=== PATIENT | female | born 1975 | race Caucasian/White ===

== ENCOUNTER 2016-05-28 16:41 | Emergency (ER) | payer OTHER ==
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
--- NOTE | 2016-05-28 17:23 | ED ORDER SUMMARY ---
..... Patient: HOWARD PAULINO OrderSheet [facility] VisitID: [id number] [address] [place] [address] 40y, F Registration Date/Time: 05/28/2016 ORDER SHEET Weight: 90.7 kg (stated) Allergies: No Known Drug Allergy GENERAL ORDERS: MEDICATION ORDERS: Silver Sulfadiazine Cream Topical (Cream 1 %) 1 application (NOW) (17:20 05/28/2016 Jael LONGORIA) (17:45 Cisco Cuellar) IV FLUIDS: ORDER SHEET NOTES: [Electronically signed by Chris Blandon R.N. (18:14 05/28/2016)] [Electronically signed by Flor Sumner PA-C (00:22 05/29/2016)] [Electronically locked/signed by Chris Blandon R.N. (18:14 05/28/2016)]
--- NOTE | 2016-05-28 17:23 | ED ORDER SUMMARY ---
..... Patient: HOWARD PAULINO OrderSheet [facility] VisitID: [id number] [address] [place] [address] 40y, F Registration Date/Time: 05/28/2016 ORDER SHEET Weight: 90.7 kg (stated) Allergies: No Known Drug Allergy GENERAL ORDERS: MEDICATION ORDERS: Silver Sulfadiazine Cream Topical (Cream 1 %) 1 application (NOW) (17:20 05/28/2016 Jael LONGORIA) (17:45 Cisco Cuellar) IV FLUIDS: ORDER SHEET NOTES: [Electronically signed by Chris Blandon R.N. (18:14 05/28/2016)] [Electronically signed by Flor Sumner PA-C (00:22 05/29/2016)] [Electronically locked/signed by Chris Blandon R.N. (18:14 05/28/2016)]
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
--- NOTE | 2016-05-29 00:22 | ED MED RECONCILIATION SUMMARY ---
Patient: HOWARD PAULINO Medication Reconciliation Report [facility] VisitID: [id number] [address] [place] [address] 40y, F Registration Date/Time: 05/28/2016 Weight: 90.7 kg Height/Length: 65 in. BMI: 33.3 ALLERGIES: No Known Drug Allergy The patient's Home Medications are listed below: CONTINUE TAKING THE FOLLOWING MEDICATIONS: Probiotic, daily The source(s) of the original Home Medication information: patient The following Medications were given to the patient in the Emergency Department: Silver Sulfadiazine Cream [TOPICAL] Topical 1 application, administered: 05/28/2016 5:30:00 PM The following Medications were prescribed to the patient: Oxycodone/APAP 5 mg/325 mg: take 1 tablet orally every 6 hours as needed for pain. Dispense ten (10). No refill. -- Flor Sumner PA-C Silvadene cream 1% : apply to affected area twice daily for 1 week until better. Dispense fifty (50) grams. One refill. Substitution is permissible -- Flor Sumner PA-C
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
--- NOTE | 2016-05-29 00:22 | ED MAR SUMMARY ---
..... Medication Administration Record [facility] [address] [place] [address] Patient: HOWARD PAULINO Visit ID: [id number] 40y, F Weight: 90.7 kg Height/Length: 65 in BMI: 33.3 ALLERGIES: No Known Drug Allergy Given 17:30 05/28/2016 Chris Blandon R.NYousuf Medication Administered: SILVER SULFADIAZINE CREAM [TOPICAL], Dose: 1 application Cream Topical. Medication Ordered: Silver Sulfadiazine Cream Topical (Cream 1 %) 1 application (NOW).
--- NOTE | 2016-05-29 00:22 | ED MAR SUMMARY ---
..... Medication Administration Record [facility] [address] [place] [address] Patient: HOWARD PAULINO Visit ID: [id number] 40y, F Weight: 90.7 kg Height/Length: 65 in BMI: 33.3 ALLERGIES: No Known Drug Allergy Given 17:30 05/28/2016 Chris Blandon R.NYousuf Medication Administered: SILVER SULFADIAZINE CREAM [TOPICAL], Dose: 1 application Cream Topical. Medication Ordered: Silver Sulfadiazine Cream Topical (Cream 1 %) 1 application (NOW).
--- NOTE | 2016-05-29 00:22 | ED MED RECONCILIATION SUMMARY ---
Patient: HOWARD PAULINO Medication Reconciliation Report [facility] VisitID: [id number] [address] [place] [address] 40y, F Registration Date/Time: 05/28/2016 Weight: 90.7 kg Height/Length: 65 in. BMI: 33.3 ALLERGIES: No Known Drug Allergy The patient's Home Medications are listed below: CONTINUE TAKING THE FOLLOWING MEDICATIONS: Probiotic, daily The source(s) of the original Home Medication information: patient The following Medications were given to the patient in the Emergency Department: Silver Sulfadiazine Cream [TOPICAL] Topical 1 application, administered: 05/28/2016 5:30:00 PM The following Medications were prescribed to the patient: Oxycodone/APAP 5 mg/325 mg: take 1 tablet orally every 6 hours as needed for pain. Dispense ten (10). No refill. -- Flor Sumner PA-C Silvadene cream 1% : apply to affected area twice daily for 1 week until better. Dispense fifty (50) grams. One refill. Substitution is permissible -- Flor Sumner PA-C
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
== END 2016-05-28 17:40 | disposition home or self-care (01) ==
LOC: ED SRH 16:41
DX: T24.211A Burn of second degree of right thigh, initial encounter (principal); T31.0 Burns involving less than 10% of body surface; X16.XXXA Contact with hot heating appliances, radiators and pipes, initial encounter; Y93.9 Activity, unspecified; Y92.009 Unspecified place in unspecified non-institutional (private) residence as the place of occurrence of the external cause; Y99.9 Unspecified external cause status

== ENCOUNTER 2016-07-27 11:12 | Emergency (ER) | payer OTHER ==
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
--- NOTE | 2016-07-27 12:32 | ED ORDER SUMMARY ---
..... Patient: HOWARD PAULINO OrderSheet [facility] VisitID: [id number] [address] [place] [address] 41y, F Registration Date/Time: 07/27/2016 ORDER SHEET Weight: 104.3 kg (stated) Allergies: No Known Drug Allergy GENERAL ORDERS: Hand 3 or 4V Right (bruising to the proximal 3 - 5 digits) Urgent (11:07/27/2016 Rosalia Hilton) (Ack 11:50 MYESHAoerner) (12:39 Jesusita R.N.) Splint (UE) (Right) (Velcro - wrist) (12:07/27/2016 Rosalia Hilton) (12:54 Jesusita R.N.) MEDICATION ORDERS: Motrin PO 600 mg (NOW) (11:30 07/27/2016 Rosalia Hilton) (Ack 11:33 Jesusita R.N.) (11:38 Jesusita R.N.) Tylenol PO 650 mg (NOW) (11:07/27/2016 Rosalia Hilton) (Ack 11:33 Jesusita R.N.) (11:48 Jesusita R.N.) IV FLUIDS: ORDER SHEET NOTES: [Electronically signed by Yousif Mi R.N. (18:53 07/27/2016)] [Electronically signed by Laz Nathan Dr. (05:06 07/30/2016)] [Electronically locked/signed by Yousif Mi R.N. (18:53 07/27/2016)]
--- NOTE | 2016-07-27 12:32 | ED CLINICAL REPORT ---
Clinical Report - Physicians/Mid Levels [facility] [address] [place] [address] 07/27/2016 11:12 Patient: HOWARD PAULINO Time Seen: 1121. Arrived- By private vehicle. Historian- patient. HISTORY OF PRESENT ILLNESS Chief Complaint: Injury to the right hand. The injury happened today. The patient sustained a crush injury- dropped heavy object on hand. Occurred at home. Patient is experiencing moderate pain. Patient denies injury to the head or neck. No other injury. REVIEW OF SYSTEMS The patient has had swelling. No numbness, weakness, foreign body or skin laceration. All systems otherwise negative, except as recorded above. PAST HISTORY See nurses notes. Tetanus immunization status is up-to-date. SOCIAL HISTORY Never smoker. No alcohol use or drug use. No recent travel. Is a local resident. ADDITIONAL NOTES The nursing notes have been reviewed. PHYSICAL EXAM Vital Signs: 07/27/2016 11:18 BP: 142/73. HR: 97. RR: 18. O2 saturation: 98%. Temp: 98.4 F. Oxygen saturation normal. Appearance: Alert. Oriented X3. No acute distress. CVS: Normal heart rate and rhythm. Heart sounds normal. Pulses normal. Respiratory: No respiratory distress. Breath sounds normal. Chest nontender. Abdomen: No visible injury. Soft and nontender. Bowel sounds normal. Skin: Skin warm and dry. Skin intact. Extremities: (mild amount of ecchymosis to the 1 digits 3 through 5 at the proximal phalanges. No other acute abnormality is noted. No bony abnormalities. No gross deformities. Skin is intact. No snuffbox tenderness. Capillary refill and sensation is intact in all fingers. Radial pulses are 2+ and symmetrical to the contralateral side. Compartments are soft.). No wrist injury. No hand injury. Hand and wrist exam otherwise negative. Neuro, Vascular and Tendons: Vascular status intact. Sensation intact. Motor intact. Tendon function intact. LABS, X-RAYS, AND EKG Rt Hand X-ray: (PROCEDURE: XR HAND 3 OR 4 VIEWS - RIGHT INDICATION: TRAUMA/INJURY TECHNIQUE: Four views. COMPARISON: None. FINDINGS: Osseous structures and joint spaces are normal. IMPRESSION: 1. Normal right hand.). The X-rays were independently viewed by me and interpreted by the radiologist. The X-rays were discussed with the radiologist (via pacs). PROGRESS AND PROCEDURES Course of Care: The patient is a pleasant 41-year-old female presenting for eval used to right-sided hand pain. On examination, there is a mild amount of ecchymosis noted on the patient's proximal digits on the digits 3 through 5. No other acute abnormalities noted. Patient is neurovascularly intact. Pain medication has been offered. Regards of the right hand have been ordered for further evaluation of the patient's hand. At this time differential diagnosis includes contusion versus fracture/dislocation. Patient is agreeable to the treatment plan. Patient's workup was noted for the findings above. No acute osseous abnormalities noted. Patient's repeat examination continues to be benign. Discussed with the patient workup. The emergency department including diagnostic uncertainty diagnosis, home care, follow-up, and return precautions. All questions have been answered. The patient expressed understanding of these instructions and was agreeable to them. Disposition: Discharged. Condition: good. CLINICAL IMPRESSION 07/27/2016 11:18 BP: 142/73. HR: 97. RR: 18. O2 saturation: 98%. Temp: 98.4 F. Hypertensive. Oxygen saturation normal. Single contusion. Essential hypertension. INSTRUCTIONS Warnings: GENERAL WARNINGS: Return or contact your physician immediately if your condition worsens or changes unexpectedly, if not improving as expected, or if other problems arise. Specifically return if pain, vomiting, bleeding, breathing difficulty or fever. Your Current Medications: CONTINUE TAKING THE FOLLOWING MEDICATIONS: None*. Prescription Medications: [place] 5 mg / 325 mg tablets: take 1 orally every 6 hours as needed for pain. Dispense twelve (12). No refill. Substitution is permissible. Follow-up: Return to the emergency department as needed. Follow up with your doctor in one week. Reason for referral: recheck today's concerns. Summary of care provided to patient via paper. Screening today revealed the patient's blood pressure to be in the hypertensive range. The patient should follow up with a primary care provider for blood pressure management. Understanding of the discharge instructions verbalized by patient. (Electronically signed by Laz Nathan Dr. 07/30/2016 5:06)
--- NOTE | 2016-07-27 12:32 | ED ORDER SUMMARY ---
..... Patient: HOWARD PAULINO OrderSheet [facility] VisitID: [id number] [address] [place] [address] 41y, F Registration Date/Time: 07/27/2016 ORDER SHEET Weight: 104.3 kg (stated) Allergies: No Known Drug Allergy GENERAL ORDERS: Hand 3 or 4V Right (bruising to the proximal 3 - 5 digits) Urgent (11:07/27/2016 Rosalia Hilton) (Ack 11:50 MYESHAoerner) (12:39 Jesusita R.N.) Splint (UE) (Right) (Velcro - wrist) (12:07/27/2016 oRsalia Hilton) (12:54 Jesusita R.N.) MEDICATION ORDERS: Motrin PO 600 mg (NOW) (11:30 07/27/2016 Rosalia Hilton) (Ack 11:33 Jesusita R.N.) (11:38 Jesusita R.N.) Tylenol PO 650 mg (NOW) (11:07/27/2016 Rosalia Hilton) (Ack 11:33 Jesusita R.N.) (11:48 Jesusita R.N.) IV FLUIDS: ORDER SHEET NOTES: [Electronically signed by Yousif Mi R.N. (18:53 07/27/2016)] [Electronically signed by Laz Nathan Dr. (05:06 07/30/2016)] [Electronically locked/signed by Yousif Mi R.N. (18:53 07/27/2016)]
--- NOTE | 2016-07-27 13:14 | DIAGNOSTIC IMAGING REPORT ---
PROCEDURE: XR HAND 3 OR 4 VIEWS - RIGHT INDICATION: TRAUMA/INJURY TECHNIQUE: Four views. COMPARISON: None. FINDINGS: Osseous structures and joint spaces are normal. IMPRESSION: 1. Normal right hand.
--- NOTE | 2016-07-30 05:07 | ED MAR SUMMARY ---
..... Medication Administration Record [facility] [address] [place] [address] Patient: HOWARD PAULINO Visit ID: [id number] 41y, F Weight: 104.3 kg Height/Length: 65 in BMI: 38.3 ALLERGIES: No Known Drug Allergy Given 11:38 07/27/2016 Jane Rojas RKym Medication Administered: MOTRIN [PO], Dose: 600 mg Tablets PO. Medication Ordered: Motrin PO 600 mg (NOW). Given 11:43 07/27/2016 Jane Rojas, RYousufN. Medication Administered: TYLENOL [PO] (ACETAMINOPHEN), Dose: 650 mg Tablets PO. Medication Ordered: Tylenol PO 650 mg (NOW).
--- NOTE | 2016-07-30 05:07 | ED MED RECONCILIATION SUMMARY ---
Patient: HOWARD PAULINO Medication Reconciliation Report [facility] VisitID: [id number] [address] [place] [address] 41y, F Registration Date/Time: 07/27/2016 Weight: 104.3 kg Height/Length: 65 in. BMI: 38.3 ALLERGIES: No Known Drug Allergy The patient's Home Medications are listed below: NONE. The source(s) of the original Home Medication information: Not obtained. The following Medications were given to the patient in the Emergency Department: Motrin [PO] PO 600 mg, administered: 07/27/2016 11:38:00 AM Tylenol [PO] PO 650 mg, administered: 07/27/2016 11:43:00 AM The following Medications were prescribed to the patient: [place] 5 mg / 325 mg tablets: take 1 orally every 6 hours as needed for pain. Dispense twelve (12). No refill. Substitution is permissible. -- Laz Nathan Dr.
--- NOTE | 2016-07-30 05:07 | ED DISCHARGE INSTRUCTIONS ---
Patient: HOWARD PAULINO General Instructions [facility] VisitID: [id number] [address] [place] [address] 41y, F Registration Date/Time: 07/27/2016 07/27/2016 11:18 BP: 142/73. HR: 97. RR: 18. O2 saturation: 98%. Temp: 98.4 F. Hypertensive. Oxygen saturation normal. Single contusion. Essential hypertension. INSTRUCTIONS Warnings: GENERAL WARNINGS: Return or contact your physician immediately if your condition worsens or changes unexpectedly, if not improving as expected, or if other problems arise. Specifically return if pain, vomiting, bleeding, breathing difficulty or fever. Your Current Medications: CONTINUE TAKING THE FOLLOWING MEDICATIONS: None*. Prescription Medications: [place] 5 mg / 325 mg tablets: take 1 orally every 6 hours as needed for pain. Dispense twelve (12). No refill. Substitution is permissible. Follow-up: Return to the emergency department as needed. Follow up with your doctor in one week. Reason for referral: recheck today's concerns. Summary of care provided to patient via paper. Screening today revealed the patient's blood pressure to be in the hypertensive range. The patient should follow up with a primary care provider for blood pressure management. Understanding of the discharge instructions verbalized by patient. ADDITIONAL INFORMATION Contusion: Hand You have a CONTUSION of your hand. This causes local pain, swelling and sometimes bruising. There are no broken bones. This injury takes from a few days to a few weeks to heal. Home Care: 1) Keep your arm elevated to reduce pain and swelling. This is very important during the first 48 hours. 2) Apply an ice pack (ice cubes in a plastic bag, wrapped in a towel) over the injured area for 20 minutes every 1-2 hours the first day. You should continue with ice packs 3-4 times a day for the next two days. Continue the use of ice packs for relief of pain and swelling as needed. 3) You may use acetaminophen (Tylenol) or ibuprofen (Motrin, Advil) to control pain, unless another pain medicine was prescribed. [ NOTE : If you have chronic liver or kidney disease or ever had a stomach ulcer or GI bleeding, talk with your doctor before using these medicines.] Follow Up with your doctor or this facility if you are not starting to improve within the next THREE days. [NOTE: If X-rays were taken, they will be reviewed by a radiologist. You will be notified of any new findings that may affect your care.] Get Prompt Medical Attention if any of the following occur: -- Pain or swelling increases -- Redness, warmth or drainage -- Hand or fingers becomes cold, blue, numb or tingly High Blood Pressure -- To Be Confirmed [No Tx] Your blood pressure was higher today than normal. Sometimes anxiety or pain can cause a temporary rise in blood pressure that later returns to normal. If your blood pressure is high on one measurement, this does not mean that you have hypertension (a chronic illness). However, you must have your blood pressure measured again within the next few days to find out if its still high. A normal blood pressure is 120/80 or less. The first (top) number is the "systolic" pressure. The second (bottom) number is the "diastolic" pressure. Hypertension exists when either the top number is 140 or higher, OR the bottom number is 90 or higher on repeated measurements. Blood pressure in the range of 120-140 (systolic) or 80-89 (diastolic) is considered "pre-hypertension". This means your are at risk for getting hypertension. You should have regular blood pressure checks to be sure your blood pressure is not rising. Home Care: Measure your blood pressure on 3 different days and write down the results. This can be done at your doctor's office or this facility. Some pharmacies and grocery stores offer automated blood pressure machines for your use. Follow Up: If your blood pressure is "high" (over 120/80) on 2 out of 3 days, you will need to follow up with your doctor for further evaluation and treatment. DO NOT PUT THIS OFF! Untreated high blood pressure increases the risk for heart attack, also known as acute myocardial infarction, or AMI, and stroke. It is a treatable condition. Get Prompt Medical Attention if any of the following occur: Chest pain or shortness of breath Severe headache Throbbing or rushing sound in the ears Nosebleed Sudden severe abdominal pain Extreme drowsiness, confusion or fainting Dizziness or vertigo (dizziness with spinning sensation) Weakness of an arm or leg or one side of the face Difficulty with speech or vision Hydrocodone Bitartrate, Acetaminophen Oral tablet What is this medicine? ACETAMINOPHEN; HYDROCODONE (a set a SAM jennifer fen; marychuy droe KOE done) is a pain reliever. It is used to treat mild to moderate pain. How should I use this medicine? Take this medicine by mouth. Swallow it with a full glass of water. Follow the directions on the prescription label. If the medicine upsets your stomach, take the medicine with food or milk. Do not take more than you are told to take. Talk to your customer service attendant regarding the use of this medicine in children. This medicine is not approved for use in children. What side effects may I notice from receiving this medicine? Side effects that you should report to your doctor or health healthcare insurance sales agent as soon as possible: allergic reactions like skin rash, itching or hives, swelling of the face, lips, or tongue breathing problems confusion feeling faint or lightheaded, falls stomach pain yellowing of the eyes or skin Side effects that usually do not require medical attention (report to your doctor or health healthcare insurance sales agent if they continue or are bothersome): nausea, vomiting stomach upset What may interact with this medicine? alcohol antihistamines isoniazid medicines for depression, anxiety, or psychotic disturbances medicines for sleep muscle relaxants naltrexone narcotic medicines (opiates) for pain phenobarbital ritonavir tramadol What if I miss a dose? If you miss a dose, take it as soon as you can. If it is almost time for your next dose, take only that dose. Do not take double or extra doses. Where should I keep my medicine? Keep out of the reach of children. This medicine can be abused. Keep your medicine in a safe place to protect it from theft. Do not share this medicine with anyone. Selling or giving away this medicine is dangerous and against the law. Store at room temperature between 15 and 30 degrees C (59 and 86 degrees F). Protect from light. Keep container tightly closed. Throw away any unused medicine after the expiration date. Discard unused medicine and used packaging carefully. Pets and children can be harmed if they find used or lost packages. What should I tell my health care provider before I take this medicine? They need to know if you have any of these conditions: brain tumor Crohn's disease, inflammatory bowel disease, or ulcerative colitis drink more than 3 alcohol-containing drinks per day drug abuse or addiction head injury heart or circulation problems kidney disease or problems going to the bathroom liver disease lung disease, asthma, or breathing problems an unusual or allergic reaction to acetaminophen, hydrocodone, other opioid analgesics, other medicines, foods, dyes, or preservatives or trying to get breast-feeding What should I watch for while using this medicine? Tell your doctor or health healthcare insurance sales agent if your pain does not go away, if it gets worse, or if you have new or a different type of pain. You may develop tolerance to the medicine. Tolerance means that you will need a higher dose of the medicine for pain relief. Tolerance is normal and is expected if you take the medicine for a long time. Do not suddenly stop taking your medicine because you may develop a severe reaction. Your body becomes used to the medicine. This does NOT mean you are addicted. Addiction is a behavior related to getting and using a drug for a non-medical reason. If you have pain, you have a medical reason to take pain medicine. Your doctor will tell you how much medicine to take. If your doctor wants you to stop the medicine, the dose will be slowly lowered over time to avoid any side effects. You may get drowsy or dizzy when you first start taking the medicine or change doses. Do not drive, use machinery, or do anything that may be dangerous until you know how the medicine affects you. Stand or sit up slowly. There are different types of narcotic medicines (opiates) for pain. If you take more than one type at the same time, you may have more side effects. Give your health care provider a list of all medicines you use. Your doctor will tell you how much medicine to take. Do not take more medicine than directed. Call emergency for help if you have problems breathing. The medicine will cause constipation. Try to have a bowel movement at least every 2 to 3 days. If you do not have a bowel movement for 3 days, call your doctor or health healthcare insurance sales agent. Too much acetaminophen can be very dangerous. Do not take Tylenol (acetaminophen) or medicines that contain acetaminophen with this medicine. Many non-prescription medicines contain acetaminophen. Always read the labels carefully. You have been given the following additional information: Contusion, Hand Hypertension, To Be Confirmed Hydrocodone Bitartrate, Acetaminophen Oral tablet (Electronically signed by Laz Nathan Dr. 07/30/2016 5:06)
--- NOTE | 2016-07-30 05:07 | ED MAR SUMMARY ---
..... Medication Administration Record [facility] [address] [place] [address] Patient: HOWARD PAULINO Visit ID: [id number] 41y, F Weight: 104.3 kg Height/Length: 65 in BMI: 38.3 ALLERGIES: No Known Drug Allergy Given 11:38 07/27/2016 Jane Rojas RKym Medication Administered: MOTRIN [PO], Dose: 600 mg Tablets PO. Medication Ordered: Motrin PO 600 mg (NOW). Given 11:43 07/27/2016 Jane Rojas, RYousufN. Medication Administered: TYLENOL [PO] (ACETAMINOPHEN), Dose: 650 mg Tablets PO. Medication Ordered: Tylenol PO 650 mg (NOW).
--- NOTE | 2016-07-30 05:07 | ED MED RECONCILIATION SUMMARY ---
Patient: HOWARD PAULINO Medication Reconciliation Report [facility] VisitID: [id number] [address] [place] [address] 41y, F Registration Date/Time: 07/27/2016 Weight: 104.3 kg Height/Length: 65 in. BMI: 38.3 ALLERGIES: No Known Drug Allergy The patient's Home Medications are listed below: NONE. The source(s) of the original Home Medication information: Not obtained. The following Medications were given to the patient in the Emergency Department: Motrin [PO] PO 600 mg, administered: 07/27/2016 11:38:00 AM Tylenol [PO] PO 650 mg, administered: 07/27/2016 11:43:00 AM The following Medications were prescribed to the patient: [place] 5 mg / 325 mg tablets: take 1 orally every 6 hours as needed for pain. Dispense twelve (12). No refill. Substitution is permissible. -- Laz Nathan Dr.
== END 2016-07-27 12:50 | disposition home or self-care (01) ==
LOC: ED SRH 11:12
DX: S60.221A Contusion of right hand, initial encounter (principal); W20.8XXA Other cause of strike by thrown, projected or falling object, initial encounter; Y92.019 Unspecified place in single-family (private) house as the place of occurrence of the external cause; Y93.89 Activity, other specified; Y99.9 Unspecified external cause status; I10 Essential (primary) hypertension